=== PATIENT | female | born 1975 | race Caucasian/White ===

== ENCOUNTER 2017-05-24 20:59 | Emergency (ER) | payer BC, OTHER ==
--- NOTE | 2017-05-24 21:44 | EDM.PDOC ---
ED HPI GENERAL MEDICAL PROBLEM - General Chief Complaint: General Stated Complaint: Incisional pain, laminectomy Time Seen by Provider: 05/24/17 21:09 Source of Information: Reports: Patient, RN, RN Notes Reviewed History Limitations: Reports: No Limitations - History of Present Illness INITIAL COMMENTS - FREE TEXT/NARRATIVE: Patient presents to the ED at [facility] complaining of incision pain and swelling. Patient underwent a laminectomy on 05/19/2017. She states the surgery was uneventful. She noticed increased pain and swelling along the upper portion of the incision. She states it is tender to touch. She noticed the area is very warm to touch. No incisional drainage. Patient states she has felt some chills. States her fevers at home have been low grade around 99. No chest pain. No SOB. She is currently being treated with Valtrex for a herpetic infection on her right thigh. Onset Date: 05/23/17 low back incision Pain Score (Numeric/FACES): 7 - Related Data Allergies Allergy/AdvReac Type Severity Reaction Status Date / Time sumatriptan [From Imitrex] Allergy Excitabilit Verified 05/24/17 21:38 y Home Meds: Home Meds Estradiol [Estradiol Transdermal] 1 each TD Q7D 04/11/13 [History] Zolpidem [Ambien] 10 mg PO BEDTIME 04/11/13 [History] Diclofenac Sodium [IJD: Diclofenac Sodium] 75 mg PO .TWICE DAILY W MEALS PRN 01/20 [History] Lidocaine [Lidocaine] 1 patch TRDERM Q12HR PRN 02/13/17 [History] Pregabalin [Lyrica] 100 mg PO TID 02/13/17 [History] Topiramate [Topiramate] 1 tab PO TID 02/13/17 [History] tiZANidine [Zanaflex] 1 tab PO TID 02/13/17 [History] traMADol [Ultram] 50 mg PO TID PRN 30 Days #180 tablet 03/05/17 [Rx] traMADol [Ultram] 50 mg PO TID PRN 30 Days #180 tablet 03/13/17 [Rx] Cephalexin [IJD: Cephalexin] 1 cap PO BID 10 Days #20 cap 05/24/17 [Rx] Past Medical History Musculoskeletal History: Reports: Back Pain, Chronic (Thoracic back pain, lumbar back pain with radiation), Other (See Below) Other Musculoskeletal History: Pes planus, chronic pain syndrome Neurological History: Reports: Headaches, Chronic (Migraine) Psychiatric History: Reports: Depression (Dysthymic disorder) Endocrine/Metabolic History: Reports: Obesity/BMI 30+ (Morbid obesity) Oncologic (Cancer) History: Reports: None Dermatologic History: Reports: Other (See Below) (Keratosis Pilaris,) - Past Surgical History GI Surgical History: Reports: Bariatric Procedure ([place]) Female Surgical History: Reports: Hysterectomy Musculoskeletal Surgical History: Reports: Knee Replacement (Left), Other (See Below) (Left ACL repair 2) Social & Family History - Tobacco Use Years of Tobacco use: 3 Used Tobacco, but Quit: Yes Month Tobacco Last Used: 20 years - Alcohol Use Days Per Week of Alcohol Use: 0 ED ROS GENERAL - Review of Systems Review Of Systems: See Below Constitutional: Reports: Fever, Chills. Denies: Weakness Respiratory: Denies: Shortness of Breath, Cough Cardiovascular: Denies: Chest Pain, Palpitations GI/Abdominal: Denies: Abdominal Pain, Nausea, Vomiting Musculoskeletal: Reports: Back Pain (s/p laminectomy) Skin: Reports: Wound (lower back incision s/p laminectomy) Neurological: Reports: No Symptoms. Denies: Dizziness, Headache, Numbness, Paresthesia, Tingling ED EXAM, GENERAL - Physical Exam Exam: See Below Exam Limited By: No Limitations General Appearance: Alert, No Apparent Distress Respiratory/Chest: No Respiratory Distress, Lungs Clear, Normal Breath Sounds Cardiovascular: Normal Peripheral Pulses, Regular Rate, Rhythm Peripheral Pulses: 2+: Radial (L), Radial (R) Back Exam: Other (Vertical incision along lower back intact with fausto; no wound dehiscence or drainage; superior end of incision is tender with erythema, swelling noted, area consistent with incisional infection) Neurological: Alert, Oriented Course - Vital Signs Last Recorded V/S: Last Vital Signs Temp 37.2 C 05/24/17 21:15 Pulse 99 05/24/17 21:15 Resp 16 05/24/17 21:15 BP 131/93 H 05/24/17 21:15 Pulse Ox 99 05/24/17 21:15 - Orders/Labs/Meds Orders: Active Orders 24 hr Category Date Time Status BASIC METABOLIC PANEL,BMP [CHEM] Stat Lab 05/24/17 21:39 Received Labs: Laboratory Tests 05/24/17 Range/Units 21:39 WBC 6.3 (4.0-10.0) x10^3/uL RBC 4.33 (4.00-5.50) x10^6/uL Hgb 12.0 (12.0-16.0) g/dL Hct 36.3 (33.0-47.0) % MCV 83.8 (78.0-93.0) fL MCH 27.7 (26.0-32.0) pg MCHC 33.1 (32.0-36.0) g/dL RDW Coeff of Jerad 14.2 (10.0-15.0) % Plt Count 254 (130-400) x10^3/uL Neut % (Auto) 55.9 (50.0-80.0) % Lymph % (Auto) 32.4 (25.0-50.0) % Weston % (Auto) 6.9 (2.0-11.0) % Eos % (Auto) 4.0 (0.0-4.0) % Baso % (Auto) 0.8 (0.2-1.2) % Departure - Departure Time of Disposition: 21:56 Disposition: Home, Self-Care 01 Condition: Good Clinical Impression: Status post lumbar laminectomy Superficial incisional infection of surgical site Qualifiers: Encounter type: initial encounter Qualified Code(s): T81.4XXA - Infection following a procedure, initial encounter - Discharge Information Prescriptions: Cephalexin [IJD: Cephalexin] 1 cap PO BID 10 Days #20 cap Instructions: Surgical Site Infections FAQs - J[facility] Referrals: Caty Rey PA-C [Primary Care Provider] - Forms: ED Department Discharge Additional Instructions: 1. Stay well hydrated and rest 2. Take antibiotic for the full coarse, even if you are feeling better 3. Continue with surgical area cares at home 4. Labs were ok 5. See your Primary this week for a recheck to make sure everything is going ok 6. Call with any questions/concerns - Problem List Review Problem List Initiated/Reviewed/Updated: Yes - My Orders Last 24 Hours: My Active Orders 05/24/17 21:39 BASIC METABOLIC PANEL,BMP [CHEM] Stat - Assessment/Plan Last 24 Hours: My Active Orders 05/24/17 21:39 BASIC METABOLIC PANEL,BMP [CHEM] Stat
== END 2017-05-24 22:08 | disposition home or self-care (01) ==
LOC: VM.ED 20:59
DX: T81.4XXA Infection following a procedure, initial encounter (principal); Z88.8 Allergy status to other drugs, medicaments and biological substances; Z79.899 Other long term (current) drug therapy; Z87.891 Personal history of nicotine dependence
CPT/HCPCS: 36415; 80048; 85025; 99283

== ENCOUNTER 2018-08-19 10:50 | Emergency (ER) | payer OTHER ==
[2018-08-19] MEDS ORDERED: Ketorolac 30 MG/ML SDV IM ONE (11:19)
--- NOTE | 2018-08-20 04:50 | EDM.PDOC ---
ED HPI GENERAL MEDICAL PROBLEM - General Chief Complaint: Back Pain or Injury Stated Complaint: back pain Time Seen by Provider: 08/19/18 10:50 Source of Information: Reports: Patient History Limitations: Reports: No Limitations - History of Present Illness INITIAL COMMENTS - FREE TEXT/NARRATIVE: Pt. presents to ER with complaints of chronic low back pain. She states that she had 2 back surgeries last year and is scheduled for another in several months. She sees Tiago Hanson for pain management. She is currently taking norco 5/325mg for her pain and states that it is no longer effective. She states that she tried to get into but the hospital pain clinic and with her PCP but was unable. She subsequently was told to come to ER if she needed it. Denies any new trauma. She is on a narcotic contract. Denies saddle anesthesia or incontinence. Onset Date: 08/19/18 Location: Reports: Back Quality: Reports: Ache, Throbbing Severity: Severe Middle Back Pain Score (Numeric/FACES): 7 - Related Data Allergies Allergy/AdvReac Type Severity Reaction Status Date / Time sumatriptan [From Imitrex] Allergy Excitabilit Verified 08/19/18 11:26 y Home Meds: Home Meds Estradiol [Estradiol Transdermal] 1 patch TD Q6D 04/11/13 [History] Zolpidem [Ambien] 10 mg PO BEDTIME PRN 04/11/13 [History] Topiramate 25 mg PO ASDIRECTED 02/13/17 [History] tiZANidine [Zanaflex] 4 mg PO TID 02/13/17 [History] Calcium Carbonate [Calcium] 600 mg PO DAILY 07/22/18 [History] Celecoxib [CeleBREX] 200 mg PO BID 07/22/18 [History] Cholecalciferol (Vitamin D3) [D-2000] 2,000 unit PO DAILY 07/22/18 [History] Clobetasol Propionate [Temovate Cream] 1 applic TP ASDIRECTED 07/22/18 [History] DULoxetine HCl [Cymbalta] 60 mg PO DAILY 30 Days #30 capsule. 07/22/18 [Rx] Diclofenac Sodium [Voltaren] 75 mg PO BID 07/22/18 [History] Ergocalciferol (Vitamin D2) [Vitamin D2] 50,000 unit PO Q7D 07/22/18 [History] Ferrous Sulfate 325 mg PO DAILY 07/22/18 [History] Fluticasone Propionate [Flonase] 1 spray NS DAILY PRN 07/22/18 [History] Ketorolac [Toradol] 10 mg PO QID PRN 07/22/18 [History] Lidocaine 5% [Lidoderm 5%] 2 patch TOP DAILY 07/22/18 [History] Loratadine/Pseudoephedrine [Alavert D-12 Allergy-Sinus Tab] 1 each PO BID PRN [History] Omeprazole 20 mg PO DAILY 07/22/18 [History] Ondansetron [Zofran] 4 mg PO QID PRN 07/22/18 [History] Polyethylene Glycol 3350 [MiraLAX] 17 gm PO DAILY PRN 07/22/18 [History] Pregabalin [Lyrica] 150 mg PO TID 07/22/18 [History] Sennosides/Docusate Sodium [Senna-Docusate Sodium Tablet] 1 each PO BID [History] Teriparatide [Forteo] 20 mcg SUBCUT DAILY 07/22/18 [History] hydroCHLOROthiazide [Hydrochlorothiazide] 12.5 mg PO DAILY 07/22/18 [History] valACYclovir [Valtrex] 1,000 mg PO DAILY 07/22/18 [History] Hydrocodone/Acetaminophen [Hydrocodon-Acetaminophen 5-325] 1 each PO QID PRN 30 Days #120 tablet 08/03/18 [Rx] Past Medical History Musculoskeletal History: Reports: Back Pain, Chronic, Other (See Below) Other Musculoskeletal History: Pes planus, chronic pain syndrome Neurological History: Reports: Headaches, Chronic Psychiatric History: Reports: Depression Endocrine/Metabolic History: Reports: Obesity/BMI 30+ Oncologic (Cancer) History: Reports: None Dermatologic History: Reports: Other (See Below) - Past Surgical History GI Surgical History: Reports: Bariatric Procedure Female Surgical History: Reports: Hysterectomy Neurological Surgical History: Reports: Laminectomy, Spinal Fusion Other Neurological Surgeries/Procedures: L3-L5 Musculoskeletal Surgical History: Reports: Knee Replacement, Other (See Below) Social & Family History - Tobacco Use Smoking Status *Q: Never Smoker - Caffeine Use Caffeine Use: Reports: Soda (6/day) - Living Situation & Occupation Living situation: Reports: , with Spouse Occupation: Employed ([employer]) ED ROS GENERAL - Review of Systems Review Of Systems: See Below Constitutional: Reports: No Symptoms HEENT: Reports: No Symptoms Respiratory: Reports: No Symptoms Cardiovascular: Reports: No Symptoms Endocrine: Reports: No Symptoms GI/Abdominal: Reports: No Symptoms : Reports: No Symptoms Musculoskeletal: Reports: Back Pain Skin: Reports: No Symptoms Neurological: Reports: No Symptoms Psychiatric: Reports: No Symptoms Hematologic/Lymphatic: Reports: No Symptoms Immunologic: Reports: No Symptoms ED EXAM, GENERAL - Physical Exam Exam: See Below Exam Limited By: No Limitations General Appearance: Alert, WD/WN, No Apparent Distress Respiratory/Chest: No Respiratory Distress, Lungs Clear, Normal Breath Sounds, No Accessory Muscle Use, Chest Non-Tender Cardiovascular: Normal Peripheral Pulses, Regular Rate, Rhythm, No Edema, No Gallop, No JVD, No Murmur, No Rub Back Exam: Normal Inspection, Decreased Range of Motion, Paraspinal Tenderness, Vertebral Tenderness Extremities: Normal Inspection, Normal Range of Motion, Non-Tender, Normal Capillary Refill, No Pedal Edema Neurological: Alert, Oriented, CN II-XII Intact, Normal Cognition, Normal Gait, Normal Reflexes, No Motor/Sensory Deficits Skin Exam: Warm, Dry, Intact, Normal Color, No Rash Course - Vital Signs Last Recorded V/S: Last Vital Signs Temp 36.8 C 08/19/18 10:55 Pulse 97 08/19/18 10:55 Resp 16 08/19/18 10:55 BP 140/98 H 08/19/18 10:55 Pulse Ox 100 08/19/18 10:55 - Orders/Labs/Meds Meds: Medications Discontinued Medications Generic Name Dose Route Start Last Admin Trade Name Hank PRN Reason Stop Dose Admin Ketorolac Tromethamine 30 mg 08/19/18 11:19 08/19/18 11:32 Toradol IM 08/19/18 11:20 30 mg ONETIME ONE Administration Orphenadrine Citrate 60 mg 08/19/18 11:19 08/19/18 11:31 Norflex IM 08/19/18 11:20 60 mg ONETIME ONE Administration Departure - Departure Time of Disposition: 11:51 Disposition: Home, Self-Care 01 Clinical Impression: Chronic low back pain - Discharge Information Instructions: Chronic Back Pain, [id number] Referrals: Caty Rey PA-C [Primary Care Provider] - Forms: ED Department Discharge Additional Instructions: Follow-up with your primary care provider or pain management regarding your opiate pain medications. - Assessment/Plan Plan: She was given toradol 30mg IM and norflex 60mg IM. She did report some improvement in discomfort. Advised to to contact either of the clinics again today to inquire about her norco. All questions were answered.
== END 2018-08-19 11:57 | disposition home or self-care (01) ==
LOC: VM.ED 10:50
DX: G89.29 Other chronic pain (principal); M54.5 Low back pain; F32.9 Major depressive disorder, single episode, unspecified; Z79.899 Other long term (current) drug therapy; Z88.8 Allergy status to other drugs, medicaments and biological substances
CPT/HCPCS: 96372; 99283; J1885; J2360

== ENCOUNTER 2018-12-01 10:15 | Outpatient (CLI) | payer OTHER, MEDICAID ==
[2018-12-01 11:09] LABS: BARBITURATE SCREEN,URINE NEGATIVE (NEGATIVE); EDDP,URINE SCREEN NEGATIVE (NEGATIVE); METHAMPHETAMINE SCREEN, URINE NEGATIVE (NEGATIVE); TCA SCREEN,URINE NEGATIVE (NEGATIVE); THC SCREEN,URINE 50 NG/ML NEGATIVE (NEGATIVE)
[2018-12-01 11:10] LABS: BENZODIAZEPINES SCREEN,URINE POSITIVE (NEGATIVE)
[2018-12-01 12:08] LABS: BARBITURATE SCREEN,URINE NEGATIVE (NEGATIVE); EDDP,URINE SCREEN NEGATIVE (NEGATIVE); METHAMPHETAMINE SCREEN, URINE NEGATIVE (NEGATIVE)
[2018-12-01 12:09] LABS: BENZODIAZEPINES SCREEN,URINE POSITIVE (NEGATIVE); TCA SCREEN,URINE NEGATIVE (NEGATIVE); THC SCREEN,URINE 50 NG/ML NEGATIVE (NEGATIVE)
[2018-12-01] MEDS ORDERED: Lidocaine 2% 10 ML Amp ONE (13:25)
[2018-12-01] MEDS ORDERED: Bupivacaine 0.25% 30 ML SDV ONE (13:25)
--- NOTE | 2018-12-01 14:15 | PCM.PAINCL ---
Past Medical History Gastrointestinal History: Reports: Other (See Below) Other Gastrointestinal History: abdominal pain, thought she had an ulcer (September 2018) started protonix and sucralfate Musculoskeletal History: Reports: Back Pain, Chronic, Other (See Below) Other Musculoskeletal History: Pes planus, chronic pain syndrome Neurological History: Reports: Headaches, Chronic Psychiatric History: Reports: Depression Endocrine/Metabolic History: Reports: Obesity/BMI 30+ Oncologic (Cancer) History: Reports: None Dermatologic History: Reports: Other (See Below) - Past Surgical History HEENT Surgical History: Reports: None Cardiovascular Surgical History: Reports: None GI Surgical History: Reports: Bariatric Procedure Female Surgical History: Reports: Hysterectomy Neurological Surgical History: Reports: Laminectomy, Spinal Fusion Other Neurological Surgeries/Procedures: L3-L5 Musculoskeletal Surgical History: Reports: Knee Replacement, Other (See Below) Other Musculoskeletal Surgeries/Procedures:: Back fusion, back surgery - rods from T6 to pelvis placed 10/12/18 Pain Social & Family History - Caffeine Use Caffeine Use: Reports: Soda (6/day) - Suicide Risk Screen Have you Tried to Harm Yourself in the Past: No Are you Having Thoughts of Harming Yourself: No Do You Have A Plan: No - Living Situation & Occupation Living situation: Reports: , with Spouse Occupation: Employed ([employer]) Pain History of Present Illnes - General Date of Service: 12/01/18 Source of Information: Patient, Old Records History Limitations: Reports: No Limitations - History of Present Illness Initial Comments - Free Text/Narative: Chief Complaint/Reason for Follow Up: Patient returns today for an appointment. She had missed her appointments with me beginning November,. She did respond when we called her that day and said that she was not feeling well. She was rescheduled for the following day and again was a no-show. On November, patient was scheduled to be again ketamine infusion for the week. The patient was a no-show and no call. We did make several attempts to get a hold of her at least Thursday and Thursday which she did not respond. Unbeknownst to me on 12 November she received a prescription for hydromorphone 4 mg every 6 hours as needed. She was given 5 days worth. This prescription was refilled for 1 day on 17 November and a another day on 18 November. The patient then received a six-day refill on November,. None of these prescriptions were written by me, as specified in her pain contract. The patient also received a 1 time dose of diazepam from her surgeon's office so she did undergo an MRI. This was November. Patient now returns today for renewal of her pain medication. Patient is also complaining of some low back pain and buttock pain. This pain began approximately a week and a half to 2 weeks ago when she was trying to trim her toenails and she had her right leg bent awkwardly for extended period of time. She reported that ever since that time the pain had been more severe. This is part of the reason that she is taking the hydromorphone. I did talk to her about the fact that she had received 2 1-day prescriptions for half the dosing that she been given previously and she did say that those seem to be at least moderately to slightly better than moderately beneficial in reducing her pain. Patient states she is scheduled to begin physical therapy tomorrow. Patient also told me that the surgeons at [facility] were pleased with the results of the surgery and how well it's been healing. Pain Description Current Pain Location: Pain is currently most pronounced in the right lower back , just above the iliac crest, right buttock, and right hip. The pain does not radiate down the leg. Patient denies any tingling, numbness, weakness but the patient does have some burning in that area particularly with active use of the muscles. Patient does state that the pain when she wakes up in the morning is generally lower than it is throughout the day and is usually worse towards evening. Patient reports this pain does not feel like her surgical pain. Pain Rating on Scale 0-10, Numeric at present: 6/10 What is patient's pain rating at its worst, best: 8/10 at the worst. This occurs every day to several times per day. Pain is worsened with change in position like getting out of a chair or climbing stairs, prolonged standing, prolonged ambulation, and when the patient sits in in a position that is not upright. Pain does go as low as 5/10. This is when she is lying down or able to sit in a chair with her back supported and be relatively upright. Patient does say the medication helps. Description: Pain is described as a 9, burning type pain that can become sharp with movement. Patient reports this pain is tiring and exhausting. Current Treatments: The patient is set to start physical therapy beginning tomorrow. She will return the day following so we can see how she responds with physical therapy. Patient has been using hydromorphone 2-4 mg every 6 hours as needed. Repositioning is most beneficial in reducing her pain. Quality of Life: Patient reports that she's been getting less sleep lately. She cannot specifically say that she awakens due to the pain but her sleep quality has been decreased. She continues to have difficulties with activities of daily living due to the need to stand for prolonged periods. This at does precipitate the pain. Patient does state that it is affecting her ability to concentrate and making her more irritable. This does translate to difficulty with interpersonal relationships with her family. - Pain Pain Location (Identify): 1 - Lumbar back pain that the patient reports radiates across the beltline but the majority of the pain is located on the right side in the low back radiating into the buttock and hip. Pain is described as a gnawing, burning type pain that is sharp at times. The pain is tiring and exhausting for the patient. Pain Current: 6 Pain at its Worst: 8 Pain at its Worst Comment: Transitioning to chair and standing Pain at its Best: 5 Patient Desciption of Pain, Outpatient: Burning, Gnawing, Sharp, Tiring/ Exhausting Pain Onset: Chronic Pain Worsened By: Movement, Repetitive Use - Effects Pain sleep: Yes Appetite: Weight Gain/Loss: Yes Bladder/Bowel Function: No Physical Activity/ADL's: Yes Difficulty with ADL's: Bending, Pushing/Pulling, Standing, Up Out of Chair Relationship with Others, Mood: Yes Emotional Support: Yes Concentration: Yes Employment: Yes Anticoagulation Therapy: No - Related Data Allergies/Adverse Reactions: Allergies Allergy/AdvReac Type Severity Reaction Status Date / Time sumatriptan [From Imitrex] AdvReac Excitabilit Verified 12/01/18 12:17 y Home Medications: Home Meds Estradiol [Estradiol Transdermal] 1 patch TD Q6D 04/11/13 [History] Zolpidem [Ambien] 10 mg PO BEDTIME PRN 04/11/13 [History] Topiramate 25 mg PO ASDIRECTED 02/13/17 [History] tiZANidine [Zanaflex] 4 mg PO TID 02/13/17 [History] Calcium Carbonate [Calcium] 600 mg PO DAILY 07/22/18 [History] Celecoxib [CeleBREX] 200 mg PO BID 07/22/18 [History] Cholecalciferol (Vitamin D3) [D-2000] 2,000 unit PO DAILY 07/22/18 [History] Diclofenac Sodium [Voltaren] 75 mg PO BID 07/22/18 [History] Ergocalciferol (Vitamin D2) [Vitamin D2] 50,000 unit PO Q7D 07/22/18 [History] Ferrous Sulfate 325 mg PO DAILY 07/22/18 [History] Fluticasone Propionate [Flonase] 1 spray NS DAILY PRN 07/22/18 [History] Lidocaine 5% [Lidoderm 5%] 2 patch TOP DAILY 07/22/18 [History] Loratadine/Pseudoephedrine [Alavert D-12 Allergy-Sinus Tab] 1 each PO BID PRN [History] Omeprazole 20 mg PO DAILY 07/22/18 [History] Ondansetron [Zofran] 4 mg PO QID PRN 07/22/18 [History] Polyethylene Glycol 3350 [MiraLAX] 17 gm PO DAILY PRN 07/22/18 [History] Pregabalin [Lyrica] 150 mg PO TID 07/22/18 [History] Sennosides/Docusate Sodium [Senna-Docusate Sodium Tablet] 1 each PO BID [History] hydroCHLOROthiazide [Hydrochlorothiazide] 12.5 mg PO DAILY 07/22/18 [History] valACYclovir [Valtrex] 1,000 mg PO DAILY 07/22/18 [History] Abaloparatide [Tymlos] 1 injection SQ DAILY 08/20/18 [History] DULoxetine HCl [Cymbalta] 60 mg PO DAILY 30 Days #30 capsule. 09/30/18 [Rx] Pantoprazole Sodium [Protonix] 40 mg PO BID 09/30/18 [History] Sucralfate 1 gm PO QID 09/30/18 [History] Acetaminophen/oxyCODONE [Percocet 325-10 MG] 1 tab PO QID PRN 14 Days #56 tab [Rx] HYDROmorphone [Dilaudid] 2 - 4 mg PO Q8H PRN 2 Days #12 tab 12/01/18 [Rx] H&P Review of Systems - Review of Systems: Review Of Systems: See Below General: Denies: Fever, Chills, Night Sweats HEENT: Reports: Glasses. Denies: Hearing Changes, Rhinitis, Post Nasal Drip, Sinus Congestion, Sore Throat, Visual Changes Pulmonary: Denies: Shortness of Breath, Wheezing, Cough Cardiovascular: Denies: Chest Pain, Palpitations, Dyspnea on Exertion Gastrointestinal: Denies: Abdominal Pain, Constipation, Diarrhea, Stool Incontinence Genitourinary: Denies: Burning, Pain, Incontinence Musculoskeletal: Reports: Back Pain (Patient reports bilateral lower back pain with radiation into the buttock on the right side.), Muscle Pain (Right lower back, buttocks, and hip.) Psychiatric: Denies: Depression, Suicidal Ideation, Homicidal Ideation Neurological: Reports: Paresthesia (Burning in the buttocks and hip right side) . Denies: Numbness, Tingling, Weakness Hematologic/Lymphatic: Reports: No Symptoms Immunologic: Reports: No Symptoms Pain Clinic Exam - Vital Signs Vital Signs: Last Vital Signs Temp 37.1 C 12/01/18 10:53 Pulse 115 H 12/01/18 10:53 Resp 16 12/01/18 10:53 BP 146/81 H 12/01/18 10:53 Pulse Ox 100 12/01/18 10:53 Weight: 87.997 kg - Exam Pain Exam: LOWER EXAM Gait: Normal stride with somewhat guarded steps. Posture: Upright. Heel- Toe Provocation: Tibialis Anterior: Negative. Extensor Hallicus Longus: Negative. Gastrocnemius and Soleus: Negative. Lumbar/ Thoracis ROM: Deferred Lower Extremity Strength Testing: Iliopsoas:5/5 right; 5/5 left. Gluteus Medius and Minimus: 5/5 right; 5/5 left. Hip Adductors: 5/5 right; 5/5 left. Quadriceps: 5/5 right; 5/5 left. Hamstrings: 5/5 right; 5/5 left. Anterior Tibialis: 5/5 right; 5/5 left. Gastrocnemius, Soleus, Peroneus Longus and Brevis: 5/5 right; 5/5 left. Tendon Reflexes: Patella:1/4 bilaterally. Achilles:1/4 bilaterally. Signs/Tests: Clonus:2 beats bilaterally . Pulses:+2 bilateral dorsalis pedis pulses. With capillary refill less than 3 seconds. Skin is warm dry pink. Straight Leg Raise: Negative bilaterally at 90, seated. Greater Trochanter Bursa Tenderness: Negative bilaterally. Sacroiliac joint palpation: Negative bilaterally. Facet joint palpation: Negative bilaterally. Trigger points: Patient does have trigger points that are active and provokable. Distribution of the trigger points as on the right side of the lower lumbar, buttock and hip area. Distribution is 1 in the psoas muscle, 2 in the quadratus lumborum, 1 in the inner Mendoza's lumborum, times for the gluteus janina, 1 in the piriformis, 1 in the gluteus medius, 1 in the gluteus minimus.. Did examine the patient's incision. The incision is healing well without any signs of erythema or infection. Patient continues to have some hyperalgesia and allodynia in the area near the incision. She is able to tolerate light palpation better than she did in the last exam but it is still slightly uncomfortable to palpate the area. - Patient Data Lab Results Last 24 hrs: Laboratory Results - last 24 hr 12/01/18 12/01/18 Range/Units 10:45 11:55 Urine Opiates Screen Negative Negative (NEGATIVE) Ur Buprenorphine Scrn Negative Negative (NEGATIVE) Ur Oxycodone Screen Negative Negative (NEGATIVE) Ur EDDP (Meth Metab) Negative Negative (NEGATIVE) Urine Methadone Screen Negative Negative (NEGATIVE) Ur Barbiturates Screen Negative Negative (NEGATIVE) Ur Tricyclics Screen Negative Negative (NEGATIVE) Ur Phencyclidine Scrn Negative Negative (NEGATIVE) Ur Amphetamine Screen Negative Negative (NEGATIVE) U Methamphetamines Scrn Negative Negative (NEGATIVE) Urine MDMA Screen Negative Negative (NEGATIVE) U Benzodiazepines Scrn Positive H Positive H (NEGATIVE) U Cocaine Metab Screen Negative Negative (NEGATIVE) U Marijuana (THC) Screen Negative Negative (NEGATIVE) - Problem List (1) Myalgia, other site SNOMED Code(s): 27858456 ICD Code: M79.18 - MYALGIA, OTHER SITE Status: Acute Current Visit: No Problem Details: November,. Patient returns today with the presentation it seems to be more myofascial in nature. This developed the approximately 2 weeks ago while she was trying to trim her toenails and had her leg bent awkwardly for a long period of time. Patient does have active trigger points in the low back, buttock and hip on the right side. I did trigger point injections and the patient reported that her pain was down to 1/10 postinjection. I'll give the patient a prescription and have her follow-up on Thursday and I will reevaluate the effectiveness the trigger points that time. (2) Medication management contract agreement SNOMED Code(s): 440123879 ICD Code: [id number] - Status: Chronic Current Visit: No Problem Details : November,. Patient returns today 12 days late for her previous medication recheck appointment. Patient has missed 3 appointments in the past 2 weeks. The patient was ill and then the last the patient did not call in with an excuse. BMP was reviewed and the patient did have medications by other providers then myself. The urine drug screen was negative for hydromorphone. I had a lengthy discussion with this patient regarding opioid pain medications and wants transpiring in the record with her visits and obtaining medication from other providers. This is further compounded by the fact that she did test negative for opioids. They gave the patient a prescription for hydromorphone 1- 2 tablets every 8 hours. And I did tell her that we would probably start to aggressively wean down her pain medication. I will reevaluate on Thursday and she will of had one visit with physical therapy to see how she tolerates that. I likely will give her a week's worth of prescription to get her through until December 13 for when she can come back for recheck. Problem List Initiated/Reviewed/Updated: Yes Orders Last 24hrs: Active Orders 24 hr Category Date Time Status Ready for Discharge [RC] PER UNIT ROUTINE Care 12/01/18 10:33 Active BENZODIAZEPINE CONF ([facility]) Routine Lab 12/01/18 11:55 Received MISC TEST Routine Lab 12/01/18 11:55 Received Assessment/Plan Comment:: Assessment/Plan: Patient likely has trigger points contributing to her pain. She does have active trigger points are provokable on exam. On this would account for the type of pain that she's been experiencing. I will plan to do trigger point injections for her prior to her leaving today. We'll evaluate post injection to see how she is doing. Patient is set to go to physical therapy tomorrow and has been cleared by her surgeons in [place]. She is to follow up with an appointment on Thursday. At that time we'll reevaluate her medication usage, based on how she responds to physical therapy. I likely will give her similar dose of medication to get her through until December, when she will return for evaluation. She will get a prescription for hydromorphone 2-4 mg every 8 hours for 2 days. We will reevaluate the effectiveness of that dosing in lieu of her physical therapy. My plan is to begin weaning her down by a 2-4 mg daily every week until she is off her hydromorphone. We will consider switching the patient to tramadol as that has better pain pathway coverage. Opioid medication management Pill count: Patient's pill counts shows no deficit of medication and it appears they have been taking the medications as prescribed. Urine drug screen: The drug screening is negative for opioids or hydromorphone. I did discuss this with the patient the patient reported that she did take 2 mg of hydromorphone last evening and has not taken any today. This patient may be a fast metabolizer and therefore the medication is not showing up in the drug screen. I did discuss this with the patient and did tell her that her medication should be showing up on the drug screen, and this does reflect upon her in ways that she may not realize it including that she may be diverting medication or using it is not intended. The patient does report that she has been using the medications as prescribed and that she does wish to be weaned off these medications if possible. Patient will be given a 2 day prescription of hydromorphone as indicated above. She will return on Thursday for evaluation with drug screening. I did repeat the drug screening today is the initial sample was deficient in volume and the second sample was significantly better in that regard. 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 I did explain to the patient that this is important to avoid doing that as she may get extra dosing and that could be detrimental to her in ways such as her having respiratory distress or rest, addiction, appear that she is Dr. hopping for medications, or that she is trying to a mass medication for possible sale. Patient denies that she is doing this with any of those reasons, but I did explain that it does give the appearance of some potential problems or issues. She was instructed not to gain any more prescriptions from anyone else brought me and that I will count this as a strike against her. This also in tales that I will likely try and wean her more aggressively. This weaning will begin December, at that visit. I did go over the outlined of the medication contract agreement she signed and the patient voices agreement with that. Patient was instructed on proper usage of medication. Patient was told not to provide the medication to anyone else. Patient is to keep the medication locked and out of availability for family members or friends. The risks of using opioids and other substances including alcohol, benzodiazepines, and muscle relaxers were discussed, as well as the risk of addiction and abuse. Patient was instructed to take the medication as prescribed. Evaluation & Management Time: Time spent discussing and providing patient education on exercise, diet, sleep, complimentary therapies, interventional treatments, medications, and social support/mental health: 40 minutes Exam Time: 10 minutes Total Time: 50 minutes
--- NOTE | 2018-12-01 15:27 | PCM.PCLMI ---
- Free Text/Narrative Note: Trigger point injections 11 affecting 7 muscle groups Informed consent: Written and verbal informed consent were given to the patient. The risks and benefits procedure were discussed. The benefit being reduction in pain. The risks being infection, bleeding, drug reactions, worsening pain over the next few days, fact that it may not work, possible nerve damage, possible intervascular injection leading to seizures, pneumothorax. Patient understands this and agrees to proceed. Muscle groups affected: Distribution of the trigger points as on the right side of the lower lumbar, buttock and hip area. Distribution is 1 in the psoas muscle, 2 in the quadratus lumborum, 1 in the inner Mendoza's lumborum, times for the gluteus janina, 1 in the piriformis, 1 in the gluteus medius, 1 in the gluteus minimus.] Prep: ChloraPrep. Local: 2% Xylocaine and 0.25% Marcaine combined in a 1:1 mixture. Procedure: Patient was placed in a left lateral position. Trigger points were identified by palpation and a audra was placed identifying them, correspondingly. The area was prepped in a wide manner. The area was scrubbed vigorously for approximately 1-1/2-2 minutes. The prep was allowed to dry completely. I donned sterile gloves and maintain sterile technique throughout. At each trigger point I placed a 25-gauge by 3.5 inch needle and advanced until the resistance of the trigger point was noted. The patient reported an increase in discomfort. The syringe was aspirated negatively and a volume of the local anesthetic into the trigger point. The area surrounding the trigger point was needled, while simultaneously injecting an additional volume of the local anesthetic. This volume as noted below in the note. This procedure was followed for all subsequent trigger points. Each trigger point was injected with 2 mL of the local anesthetic and the surrounding area received 2 mL, giving approximately one half of the total dose into each of the sites treated at each trigger point. Postprocedure the patient's vital signs were monitored. No untoward effects were noted. No signs and symptoms a local anesthetic toxicity were noted. Patient reported pain of 1/10 down from 6/10. This represents a 83% improvement in pain. Assessment: Same as preprocedure. Plan: Patient is to return in 2 days to see the effectiveness of this injection , and to reevaluate the opioid need in light of physical therapy. Patient was told to watch for signs and symptoms of infection and worsening pain. They are to return to the hospital should those become significant. Discharge instructions were done per nursing.
== END 2018-12-01 13:20 | disposition home or self-care (01) ==
LOC: VM.PAIN 10:15
PROVIDERS: ATTEND Nurse Anesthetist, Certified Registered
DX: M79.18 Myalgia, other site (principal); M54.5 Low back pain; M40.205 Unspecified kyphosis, thoracolumbar region; Z79.899 Other long term (current) drug therapy
CPT/HCPCS: 20553; 80305; 99215; G0480; J2001; J3490

== ENCOUNTER 2021-08-17 13:23 | Emergency (ER) | payer OTHER ==
[2021-08-17] MEDS ORDERED: HYDROmorphone 1 MG/ML Syringe IVPUSH ONE (13:33)
[2021-08-17] MEDS ORDERED: Ondansetron 4 MG/2 ML SDV IVPUSH ONE (13:34)
[2021-08-17 14:23] LABS: CHLORIDE,CL 108 mmol/L (98-107); SODIUM,NA 143 mmol/L (136-145)
[2021-08-17 14:24] LABS: ANION GAP 15.9 mmol/L (5-15)
[2021-08-17] MEDS ORDERED: Orphenadrine 60 MG/2 ML Inj IM ONE (14:48)
[2021-08-17] MEDS ORDERED: Take Home: predniSONE 20 MG, 2 Tab Pack PO ONE (14:48)
[2021-08-17] MEDS ORDERED: predniSONE 20 MG Tab PO STA (14:48)
[2021-08-17] MEDS ORDERED: Take Home: Cyclobenzaprine 10 MG Tab, 4 Tab Pack PO ONE (14:51)
== END 2021-08-17 15:14 | disposition home or self-care (01) ==
LOC: VM.ED 13:23
DX: M62.830 Muscle spasm of back (principal); K21.9 Gastro-esophageal reflux disease without esophagitis; E66.9 Obesity, unspecified; Z68.30 Body mass index [BMI] 30.0-30.9, adult; Z88.8 Allergy status to other drugs, medicaments and biological substances; Z79.899 Other long term (current) drug therapy; Z98.1 Arthrodesis status
CPT/HCPCS: 36415; 72100; 80053; 85025; 85610; 96372; 96374; 96375; 99283; 99283-25; A9270-GY; J1170; J2360; J2405; J7512

== ENCOUNTER 2023-01-23 18:11 | Emergency (ER) | payer OTHER | END 2023-01-23 18:45 | disposition home or self-care (01) | LOC: VM.ED 18:11 | DX: L76.22 Postprocedural hemorrhage of skin and subcutaneous tissue following other procedure (principal); K21.9 Gastro-esophageal reflux disease without esophagitis; E66.9 Obesity, unspecified; Z88.8 Allergy status to other drugs, medicaments and biological substances; Z87.891 Personal history of nicotine dependence | CPT/HCPCS: 99283 ==

== ENCOUNTER 2023-11-05 11:31 | Day surgery (SDC) | payer OTHER ==
[~2023-11-05 11:31] MED LIST: Lactated Ringers 1,000 ML IV SCH
[2023-11-05] MEDS: Lactated Ringers 1,000 ML IV SCH (11:52)
[2023-11-05] MEDS ORDERED: fentaNYL 100 MCG/2 ML SDV ONE (12:15)
[2023-11-05] MEDS ORDERED: Propofol 200 MG/20 ML SDV ONE ×2 (12:15→12:29)
== END 2023-11-05 14:55 | disposition home or self-care (01) ==
LOC: VM.SDS 11:31
PROVIDERS: ATTEND Family Medicine
DX: K21.9 Gastro-esophageal reflux disease without esophagitis (principal); F33.41 Major depressive disorder, recurrent, in partial remission; I10 Essential (primary) hypertension; E66.01 Morbid (severe) obesity due to excess calories; Z68.41 Body mass index [BMI] 40.0-44.9, adult; Z79.899 Other long term (current) drug therapy
CPT/HCPCS: 00731; 43239; J2704; J3010; J7120

== ENCOUNTER 2024-05-08 10:31 | Emergency (ER) | payer OTHER ==
[2024-05-08] MEDS: Albuterol 0.083% 2.5 MG/3 ML Neb Soln NEB ONE (10:32)
[2024-05-08] MEDS: Codeine/guaiFENesin 10-100 MG/5 ML Syrup 5 ML Cup PO ONE (11:01)
[2024-05-08] MEDS: Take Home: predniSONE 20 MG, 2 Tab Pack PO ONE (11:50)
[2024-05-08] MEDS: predniSONE 20 MG Tab PO ONE (11:50)
[2024-05-08] MEDS: Take Home: Codeine/guaiFENesin 100-10 MG/5 ML Syrup 5 ML, 2 Cup Pack PO ONE (12:26)
== END 2024-05-08 12:05 | disposition home or self-care (01) ==
LOC: VM.ED 10:31
DX: J06.9 Acute upper respiratory infection, unspecified (principal); I10 Essential (primary) hypertension; Z88.8 Allergy status to other drugs, medicaments and biological substances; Z79.899 Other long term (current) drug therapy; Z90.710 Acquired absence of both cervix and uterus
CPT/HCPCS: 71045; 99283; 99285; A9270-GY; J7512; J7613-GY

== ENCOUNTER 2024-12-12 18:58 | Emergency (ER) | payer OTHER ==
[2024-12-12 19:22] LABS: BASOPHILS ABSOLUTE AUTO 0.0 x10^3/uL (0.0-0.2); BASOPHILS PERCENT AUTO 0.5 % (0.2-1.2); EOSINOPHILS ABSOLUTE AUTO 0.1 x10^3/uL (0.0-0.5); EOSINOPHILS PERCENT AUTO 1.9 % (0.0-4.0); IMMATURE GRAN ABSOLUTE AUTO 0.01 x10^3/uL (0.00-0.07); IMMATURE GRAN PERCENT AUTO 0.20 % (0.00-0.43); LYMPHOCYTES ABSOLUTE AUTO 2.4 x10^3/uL (1.0-4.8); LYMPHOCYTES PERCENT AUTO 38.4 % (25.0-50.0); MONOCYTES ABSOLUTE AUTO 0.3 x10^3/uL (0.0-0.8); MONOCYTES PERCENT AUTO 5.3 % (2.0-11.0); NEUTROPHILS ABSOLUTE AUTO 3.4 x10^3/uL (1.8-7.7); NEUTROPHILS PERCENT AUTO 53.7 % (50.0-80.0); PLATELET COUNT,PLT 166 x10^3/uL (130-400); RED BLOOD CELL COUNT 4.98 x10^6/uL (4.00-5.50); WHITE BLOOD CELL COUNT,WBC 6.3 x10^3/uL (4.0-10.0)
[2024-12-12 19:44] LABS: A/G RATIO 1.09; ALANINE AMINOTRANSFERASE,ALT 19 U/L (14-59); ASPARTATE AMNIOTRANSFERASE,AST 17 U/L (15-37); BILIRUBIN TOTAL 0.3 mg/dL (0.2-1.0); BLOOD UREA NITROGEN,BUN 13 mg/dL (7-18); CARBON DIOXIDE,CO2 25 mmol/L (21-32); CHLORIDE,CL 104 mmol/L (98-107); CREATININE 1.1 mg/dL (0.55-1.02); GLUCOSE RANDOM 100 mg/dL (70-99); POTASSIUM,K 3.8 mmol/L (3.5-5.1); PROTEIN TOTAL,TP 7.3 g/dL (6.4-8.2); SODIUM,NA 141 mmol/L (136-145)
[2024-12-12 19:45] LABS: ESTIMATED GFR 61 mL/min (>=60)
[2024-12-12] MEDS: Ketorolac 30 MG/ML SDV IM ONE (19:52)
== END 2024-12-12 20:04 | disposition home or self-care (01) ==
LOC: VM.ED 18:58
DX: R07.89 Other chest pain (principal); G43.009 Migraine without aura, not intractable, without status migrainosus; K21.9 Gastro-esophageal reflux disease without esophagitis; I10 Essential (primary) hypertension; Z79.899 Other long term (current) drug therapy; Z88.8 Allergy status to other drugs, medicaments and biological substances
CPT/HCPCS: 36415; 71045; 80053; 83690; 84484; 85025; 93005; 96372; 99285; J1885